=== PATIENT | female | born 1975 | race Two or more races ===

== ENCOUNTER 2017-04-10 08:37 | Emergency (ER) | payer SELFPAY, OTHER ==
[2017-04-10] MEDS: KETOROLAC 60 MG/2 ML INJ. IM (09:16)
== END 2017-04-10 10:04 | disposition home or self-care (01) ==
LOC: ER 08:37
DX: S96.912A Strain of unspecified muscle and tendon at ankle and foot level, left foot, initial encounter (principal); S29.012A Strain of muscle and tendon of back wall of thorax, initial encounter; K21.9 Gastro-esophageal reflux disease without esophagitis; F32.9 Major depressive disorder, single episode, unspecified; W22.8XXA Striking against or struck by other objects, initial encounter; W10.9XXA Fall (on) (from) unspecified stairs and steps, initial encounter; Y93.89 Activity, other specified; Y92.89 Other specified places as the place of occurrence of the external cause; Y99.8 Other external cause status
CPT/HCPCS: 73630; 96372; 99284-25; J1885